=== PATIENT | male | born 1930 | race Caucasian/White ===

== ENCOUNTER 2017-08-30 07:52 | Emergency (ER) | payer MEDICARE, OTHER ==
[~2017-08-30] VITALS: Ht 177.8 cm; Wt 85.0 kg
[~2017-08-30 07:52] MED LIST: ARICEPT PO; ASPIRIN EC81 MG PO; CIPRO500 MG OR; COUMADIN5 MG PO; COUMADIN7.5 MG OR; DIOVAN160 MG OR; DIOVAN160 MG PO; FERROUS SULF325 M1 OR; FISH OIL1000 MG PO; FLAGYL500 MG PO; IMDUR30 MG; ISOSORB MONO30 MG PO; LASIX40 MG OR; LISINOPRIL5 MG PO; LO-DOSE ASA81 MG OR; LORTAB 10 PO; LORTAB 7.5 PO; MET12.5TAB OR; METO50TA52 PO; OMEPRAZOLE20 M1 PO; PERCOCET 5/325M1 TAB PO; POT CL MICRO20 MEQ OR; PRAVACHOL40 MG OR; PRAVACHOL40 MG PO; PRILOSEC20 MG; SYNTHROID125 MCG PO; TOPROL XL25 M1 OR; TOPROL XL25 M1 PO; TYLENOL 8 HR650 MG OR; TYLENOL 8 HR650 MG PO; VICODIN1 TAB OR; WARFARIN7.5 MG PO
[2017-08-30] MEDS ORDERED: HYDROCO/APAP1 TA9 PO (08:39)
[2017-08-30] MEDS ORDERED: CEPHALEXIN500 MG PO (08:39)
[2017-08-30 09:02] LABS: HEMATOCRIT 38.6 % (39.0-50.0); HEMOGLOBIN 13.3 g/dl (14.0-18.0); IMMATURE GRANULOCYTES 0.5 % (0.0-1.0); MEAN CELL VOLUME 89.6 fL CALC (80.0-100.0); MEAN CORPUSCULAR HGB 30.9 pG CALC (26.0-32.0); MEAN CORPUSCULAR HGB CONC 34.5 g/L CALC (32.0-36.0); NEUT# 5.77 thou/uL (1.82-7.42); RED BLOOD COUNT 4.31 mill/uL (4.70-6.10); RED CELL DISTRI WIDTH 13.1 % (11.5-15.5)
[2017-08-30 09:22] LABS: ALBUMIN 4.3 g/dL (3.2-5.0); ALKALINE PHOSPHATASE 70 u/l (38-126); ANION GAP 18 (6-22 (CALC)); BILIRUBIN, TOTAL 1.6 mg/dL (0.0-1.4); BUN 14 mg/dL (8-23); BUN/CREATININE RATIO 14 (12-20 (CALC)); CARBON DIOXIDE 28 mmol/l (22-30); CHLORIDE 93 mmol/l (95-108); GFR > 60 ML/MIN (>=60 (CALC)); GFR FOR AFR.AMER. > 60 ML/MIN (>=60 (CALC)); POTASSIUM 4.8 mmol/l (3.5-5.1); SGOT/AST 24 u/l (19-48); SGPT/ALT 33 u/l (11-66); SODIUM 133 mmol/l (137-146); TOTAL PROTEIN 7.2 g/dL (6.3-8.2)
[2017-08-30] MEDS ORDERED: TORADOL PO (09:44)
[2017-08-30 09:57] VITALS: BP 158/78
== END 2017-08-30 10:10 | disposition home or self-care (01) ==
LOC: ED 07:52
PROVIDERS: Emergency Medicine
DX: R11.0 Nausea (principal); R61 Generalized hyperhidrosis; R53.1 Weakness; T50.995A Adverse effect of other drugs, medicaments and biological substances, initial encounter; I10 Essential (primary) hypertension; I25.10 Atherosclerotic heart disease of native coronary artery without angina pectoris; I48.91 Unspecified atrial fibrillation